=== PATIENT | male | born 1945 | race Caucasian/White ===

== ENCOUNTER 2017-04-22 06:33 | Day surgery (SDC) | payer MEDICARE ==
[~2017-04-22] VITALS: Ht 172.7 cm; Wt 88.9 kg
--- NOTE | ~2017-04-22 | EGD ---
EGD REPORT [facility] [address] [place] [address] NAME: KEVON SANDERSON : [birth year] STATUS : REG [facility]#: [id number] AGE: 71 ADM/REG DATE : 04/22/17 MR#: [id number] REPORT SERV DATE: 04/22/17 DICTATED BY: BIB RODRIGUEZ DATE: 04/22/17 REPORT STATUS : Draft [facility]: [facility] DATE: 04/22/17 [facility] Patient Name: Kevon Sanderson Date of : 1945 Attending MD: BIB RODRIGUEZ MD Procedure Date No Time: 04/22/2017 Procedure: Colonoscopy Indications: High risk colon cancer surveillance: Personal history of colonic polyps, Last colonoscopy: 2013 Referring MD: DRE VEGAS Medicines: See the Anesthesia note for documentation of the administered medications Complications: No immediate complications. Procedure: Pre-Anesthesia Assessment: - ASA Grade Assessment: III - A patient with severe systemic disease. After I obtained informed consent, the scope was passed under direct vision. Throughout the procedure, the patient's blood pressure, pulse, and oxygen saturations were monitored continuously. The [id number] was introduced through the anus and advanced to the cecum, identified by appendiceal orifice and ileocecal valve. The colonoscopy was performed without difficulty. The patient tolerated the procedure well. The quality of the bowel preparation was adequate. Findings: The perianal and digital rectal examinations were normal. Diverticula were found in the sigmoid colon, in the descending colon, in the ascending colon and in the cecum. Internal hemorrhoids were found during retroflexion and were small. Three sessile polyps were found in the ascending colon. The polyps were small in size. These polyps were removed with a cold biopsy forceps. Resection and retrieval were complete. Two sessile polyps were found in the transverse colon. The polyps were small in size. These polyps were removed with a cold biopsy forceps. Resection and retrieval were complete. Impression: - Diverticulosis in the sigmoid colon, in the descending colon, in the ascending colon and in the cecum. - Internal hemorrhoids. - Three small polyps in the ascending colon. Resected and retrieved. - Two small polyps in the transverse colon. Resected and retrieved. EGD REPORT [address] [address] NAME: KEVON SANDERSON : [birth year] [place]US [place] [facility] [place] [id number] AGE: 71 ADM/REG DATE : 04/22/17 MR#: [id number] REPORT SERV DATE: 04/22/17 DICTATED BY: BIB RODRIGUEZ DATE: 04/22/17 REPORT STATUS : Draft TRANSCRIBED BY: [employer] DATE: 04/22/17 Recommendation: - Patient has a contact number available for emergencies. The signs and symptoms of potential delayed complications were discussed with the patient. Return to normal activities tomorrow. Written discharge instructions were provided to the patient. - Regular diet. - Continue present medications. - Repeat colonoscopy for surveillance based on pathology results. - FOR YOUR BIOPSY RESULTS: Please go to [email or web address] and register to receive your results via the portal. Your biopsy results will be posted there in about 7 to 10 days. IF you do not see result in 10 days, call office. - Restart Pradaxa today Procedure Code(s): --- Professional --- 86945, Colonoscopy, flexible, proximal to splenic flexure; with biopsy, single or multiple Diagnosis Code(s): --- Professional --- K64.8, Other hemorrhoids K57.30, Diverticulosis of large intestine without perforation or abscess without bleeding D12.3, Benign neoplasm of transverse colon D12.2, Benign neoplasm of ascending colon Z86.010, Personal history of colonic polyps CPT copyright 2013 [employer]. All rights reserved. The codes documented in this report are preliminary and upon claims adjudicator review may be revised to meet current compliance requirements. Bib Rodriguez MD BIB RODRIGUEZ MD 04/22/2017 8:46 AM This report has been signed electronically. Number of Addenda: 0 Note Initiated On: 04/22/2017 8:13 AM Scope Withdrawal Time 0 hours 10 minutes 35 seconds [id number] [id number]
[~2017-04-22 06:33] MED LIST: ADVAIR INH; ALLEGRA180 PO; AMB5 PO; AVAPRO300 MG PO; C2 PO; C5 PO; CAT2 PO; CELEBREX2 PO; COREG CR80 MG PO; COREG25 PO; COUMADIN7.5 MG PO; COZAAR100 MG PO; FISH-EPA1000 MG PO; FLAXSEED OIL1000 MG PO; FLEX PO; GLUCCHONDR PO; GLUCOPHAGE1000 MG PO; GLUCPH PO; KLOR-CON M2020 MEQ PO; LIPITOR10 PO; LOZOLTAB PO; MIRAPEX250 PO; NEUR800 PO; NORV25 PO; PATADAY OPH; PCET PO; PRADAXA150 MG PO; PROAIR HFA INH; PRODAXA PO; PROTONIX PO; REST75 PO; RESTORIL30 MG PO; RYTHMOL SR225 MG PO; TOPROL XL200 MG PO; TOPXL100 PO; VERAMYST27.5 MCG NAS; VITAMIN B PO; VITAMIN B-121000 MC1 SL; ZYRTEC ALLGY10 MG PO
== END 2017-04-22 23:59 | disposition home or self-care (01) ==
LOC: DMU 06:33
PROVIDERS: Internal Medicine Gastroenterology
PROC: 0DBL8ZX Excision of Transverse Colon, Via Natural or Artificial Opening Endoscopic, Diagnostic (ICD-10-PCS; 2017-04-22)
PROC: 0DBK8ZX Excision of Ascending Colon, Via Natural or Artificial Opening Endoscopic, Diagnostic (ICD-10-PCS; principal; 2017-04-22 08:00)
DX: Z12.11 Encounter for screening for malignant neoplasm of colon (principal); D12.2 Benign neoplasm of ascending colon; K63.5 Polyp of colon; K57.30 Diverticulosis of large intestine without perforation or abscess without bleeding; K64.8 Other hemorrhoids; I10 Essential (primary) hypertension; E11.9 Type 2 diabetes mellitus without complications; I48.91 Unspecified atrial fibrillation; K21.9 Gastro-esophageal reflux disease without esophagitis; G47.33 Obstructive sleep apnea (adult) (pediatric); E78.00 Pure hypercholesterolemia, unspecified; Z87.891 Personal history of nicotine dependence; Z86.010 Personal history of colon polyps; Z90.49 Acquired absence of other specified parts of digestive tract; Z98.1 Arthrodesis status; Z96.651 Presence of right artificial knee joint; Z98.41 Cataract extraction status, right eye; Z98.42 Cataract extraction status, left eye; Z96.1 Presence of intraocular lens; Z98.890 Other specified postprocedural states; Z79.899 Other long term (current) drug therapy
CPT/HCPCS: 82962; 88305